=== PATIENT | male | born 1965 | race American Indian/Alaskan Native ===

== ENCOUNTER 2018-02-26 21:20 | Emergency (ER) | payer OTHER ==
[2018-02-26 21:31] VITALS: BP 141/89; PULSE 82; RESP 17; TEMP 98.5; O2SAT 99
--- NOTE | 2018-02-26 22:38 | ED PDOC ---
HPI: General Adult Time Seen by Provider: 02/26/18 21:33 Chief Complaint (Nursing): Back Pain Chief Complaint (Provider): fall History Per: Patient Additional Complaint(s): 52-year-old male presents with right knee pain, right elbow pain, lower back pain and headache status post fall off the back of a truck at approximately 5: 15 today. Patient states he tripped, lost his footing and fell backwards off a truck hitting the back of his head against the ground. He states he lost consciousness for about 10 minutes and then got up and was able to walk. He presents with headache, lower back pain, right elbow pain and right knee pain. No medication taken for pain relief prior to arrival. PMD: none Past Medical History Reviewed: Historical Data, Nursing Documentation, Vital Signs Vital Signs: Last Vital Signs Temp 98.5 F 02/26/18 21:28 Pulse 82 02/26/18 21:28 Resp 17 02/26/18 21:28 BP 141/89 02/26/18 21:28 Pulse Ox 99 02/26/18 22:37 - Medical History PMH: No Chronic Diseases - Family History Family History: States: No Known Family Hx - Living Arrangements Living Arrangements: With Family - Social History Current smoker - smoking cessation education provided: Yes Alcohol: None Drugs: Denies - Home Medications Home Medications: Ambulatory Orders Medication Instructions Recorded Cyclobenzaprine [Cyclobenzaprine 10 mg PO TID PRN #20 tab 02/26/18 HCl] Naproxen [Naprosyn] 500 mg PO BID #20 tab 02/26/18 - Allergies Allergies/Adverse Reactions: Allergies Allergy/AdvReac Type Severity Reaction Status Date / Time No Known Allergies Allergy Verified 02/26/18 21:31 Review of Systems ROS Statement: Except As Marked, All Systems Reviewed And Found Negative Musculoskeletal: Positive for: Other (back pain, right elbow pain, right knee pain s/p fall) Neurological: Positive for: Other (head injury with LOC) Physical Exam - Reviewed Nursing Documentation Reviewed: Yes Vital Signs Reviewed: Yes - Physical Exam Appears: Positive for: Well, Non-toxic, No Acute Distress Head Exam: Positive for: ATRAUMATIC, NORMAL INSPECTION Skin: Positive for: Normal Color. Negative for: Rash Eye Exam: Positive for: Normal appearance Neck: Positive for: Normal Cardiovascular/Chest: Positive for: Regular Rate, Rhythm Respiratory: Positive for: Normal Breath Sounds Gastrointestinal/Abdominal: Positive for: Soft. Negative for: Tenderness Back: Positive for: Vertebral Tenderness (Midline tenderness lumbar spine with no step-off, negative bilateral straight leg raise). Negative for: L CVA Tenderness, R CVA Tenderness Extremity: Positive for: Other (Full range of motion right elbow with pain, strong right handgrip, no bony deformity noted, mild swelling to right patellar region with full range of motion right knee) Neurologic/Psych: Positive for: Alert, Oriented - ECG O2 Sat by Pulse Oximetry: 99 Pulse Ox Interpretation: Normal - Other Rad CT head X-Ray: Read By Radiologist X-ray right knee X-Ray: Interpreted by Me, Viewed By Me X-Ray Interpretation: no fx, no dis X-ray right elbow X-Ray: Interpreted by Me, Viewed By Me X-ray LS Spine X-Ray: Interpreted by Me, Viewed By Me X-Ray Interpretation: no fx, no dis Medical Decision Making Medical Decision Makin52 year old male with low back pain, right elbow pain, right knee pain and headache status post fall. Plan: PO tylenol CT head X-ray right knee X-ray right elbow Procedure note: Jeyson wrap and sling applied to right arm, knee immobilizer applied to right knee, neurovascular intact status post placement respectively. Patient aware of all diagnostic testing results, all questions answered. Prescriptions given for Naprosyn and Flexeril, patient was referred to orthopedic on-call. Disposition - Clinical Impression Clinical Impression: Head injury, Elbow sprain, Knee contusion, Lumbar strain - Patient ED Disposition Is Patient to be Admitted: Transfer of Care Counseled Patient/Family Regarding: Studies Performed, Diagnosis, Need For Followup, Rx Given - Disposition Referrals: Mitchell Boss MD [Staff Provider] - Disposition: Transfer of Care Disposition Time: 00:03 Condition: FAIR Additional Instructions: Ice, rest and elevate affected areas. Take prescription meds as directed as needed for pain. Follow-up with orthopedist in 2-3 days Prescriptions: Cyclobenzaprine [Cyclobenzaprine HCl] 10 mg PO TID PRN #20 tab PRN Reason: Muscle Spasm Naproxen [Naprosyn] 500 mg PO BID #20 tab Instructions: Contusion (DC), Closed Head Injury, Elbow Sprain (DC), Knee Sprain (DC) Forms: [employer] (Austrian) Patient Signed Over To: Teresa Stone Handoff Comments: Pending CT head report and final disposition
--- NOTE | 2018-02-27 00:03 | ED PDOC ---
- ECG O2 Sat by Pulse Oximetry: 99 (RA) Pulse Ox Interpretation: Normal Medical Decision Making Medical Decision Making: Case endorsed to Leeroy Stone PA-C at [address] results, re-evaluation, and further disposition. Pertinent details reviewed. Vitals stable. 1210 CT reviewed, radiology report follows FINDINGS: Brain: Mild atrophy. No intracranial hemorrhage. No mass. No edema. Ventricles: No hydrocephalus. Bones/joints: No acute fracture. Sinuses: Scattered minimal mucosal thickening. Mastoid air cells: No significant mastoid effusion. Orbits: Unremarkable as visualized. Soft tissues: Minimal scalp swelling. IMPRESSION: No intracranial hemorrhage. Thank you for allowing us to participate in the care of your patient. Dictated and Authenticated by: Antony Currie MD 02/27/2018 12:08 AM Eastern Time ([place] & [place]) On re-evaluation, patient reports improvement of symptoms. On exam, patient remains AAOx3, in no acute distress. Lungs clear to auscultation, cardiac RRR, abdomen soft, non-tender, repeat neuro exam shows no focal findings. Vitals stable. Lab/Diagnostic results d/w the patient in great detail. Diagnosis of closed head injury, acute knee, elbow, and back pain s/p fall d/w the patient. Based on history, exam and diagnostic results, plan will be for outpatient follow up with ortho/PMD. Patient instructed to follow-up with pmd / referral provided / the clinic in 1- 2 days without fail. Advised to take medication as prescribed. Return to the emergency room at any time for any new or worsening symptoms. Patient states he fully agrees with and understands discharge instructions. States that he agrees with the plan and disposition. Verbalized and repeated discharge instructions and plan. I have given the patient opportunity to ask any additional questions. Disposition Counseled Patient/Family Regarding: Studies Performed, Diagnosis, Need For Followup, Rx Given - Clinical Impression Clinical Impression: Head injury, Elbow sprain, Knee contusion, Lumbar strain - POA Present On Arrival: Falls Or Trauma - Disposition Referrals: Mitchell Boss MD [Staff Provider] - Disposition: Routine/Home Disposition Time: 00:11 Condition: FAIR Additional Instructions: Ice, rest and elevate affected areas. Take prescription meds as directed as needed for pain. Follow-up with orthopedist in 2-3 days. The emergency medical care you received today was directed at your acute symptoms. If you were prescribed any medication, please fill it and take as directed. It may take several days for your symptoms to resolve. Return to the Emergency Department if your symptoms worsen, do not improve, or if you have any other problems. Please contact your doctor in 2 days for re-evaluation and follow up / or call one of the physicians/clinics you have been referred to that are listed on the Patient Visit Information form that is included in your discharge packet. Bring any paperwork you were given at discharge with you along with any medications you are taking to your follow up visit. Our treatment cannot replace ongoing medical care by a primary care provider (PCP) outside of the emergency department. Prescriptions: Cyclobenzaprine [Cyclobenzaprine HCl] 10 mg PO TID PRN #20 tab PRN Reason: Muscle Spasm Naproxen [Naprosyn] 500 mg PO BID #20 tab Instructions: Closed Head Injury, Contusion (DC), Knee Sprain (DC), Elbow Sprain (DC) Forms: [employer] (Wolof) Print Language: IRAQI
--- NOTE | 2018-02-27 10:09 | CT ---
Date of service: 02/26/2018 PROCEDURE: CT HEAD WITHOUT CONTRAST. HISTORY: trauma COMPARISON: None available. TECHNIQUE: Axial computed tomography images were obtained through the head/brain without intravenous contrast. Radiation dose: Total exam DLP = 859.90 mGy-cm. This CT exam was performed using one or more of the following dose reduction techniques: Automated exposure control, adjustment of the mA and/or kV according to patient size, and/or use of iterative reconstruction technique. FINDINGS: HEMORRHAGE: No intracranial hemorrhage. BRAIN: De Paz-white matter differentiation is preserved. There is no mass, mass effect or abnormal extra-axial fluid collection. There is no territorial infarction. The midline sagittal structures are normal. VENTRICLES: The ventricles are normal in size, shape and configuration. CALVARIUM: There is no calvarial fracture or extracranial soft tissue swelling. PARANASAL SINUSES: Predominantly clear. MASTOID AIR CELLS: Predominantly clear. OTHER FINDINGS: None. IMPRESSION: No acute intracranial abnormality. A preliminary report was provided by [employer] [facility].
--- NOTE | 2018-02-27 10:31 | RAD ---
Date of service: 02/26/2018 PROCEDURE: Radiographs of the right elbow. HISTORY: trauma COMPARISON: No prior. FINDINGS: BONES: No acute fracture or destructive bony lesion identified. JOINTS: Extensive degenerative changes are appreciate the right elbow joint. Cortical sclerosis and extensive osteophyte development are appreciated humeral radial and humeral ulnar joints. No subluxation or dislocation. SOFT TISSUES: Normal. JOINT EFFUSION: None. OTHER FINDINGS: None. IMPRESSION: No acute fracture or dislocation identified. 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
--- NOTE | 2018-02-27 10:33 | RAD ---
Date of service: 02/26/2018 PROCEDURE: Right Knee Radiographs. HISTORY: trauma COMPARISON: None. FINDINGS: BONES: No acute fracture dislocation. Deformity of the proximal tibia appreciated suggesting prior healed fracture. JOINTS: No subluxation or dislocation. Mild osteophyte development is seen at the patellofemoral joint. Joint space narrowing the medial femorotibial and patellofemoral compartments indicates degenerative joint disease as well. JOINT EFFUSION: Trace suprapatellar bursa effusion suggested. OTHER FINDINGS: None. IMPRESSION: No acute fracture or dislocation although chronic healed fracture of the proximal tibia suggested. Moderate degenerative joint disease, bicompartmental.
--- NOTE | 2018-02-27 10:37 | RAD ---
Date of service: 02/26/2018 PROCEDURE: Radiographs of the Lumbar Spine. HISTORY: trauma COMPARISON: No prior. FINDINGS: BONES: Normal alignment. No listhesis. No fracture. DISC SPACES: Gross spondylosis appreciate the L3-4 level anteriorly and appears mild at L2-3 and L4-5. Disc height loss is mild at L4-5 with remaining intervertebral disc heights normal as well as vertebral body heights throughout. OTHER FINDINGS: None. IMPRESSION: No fracture or spondylolisthesis appreciated grossly. Multilevel lumbar spondylosis affects the mid to upper levels.
== END 2018-02-27 00:17 | disposition home or self-care (01) ==
LOC: H.ER 21:20
DX: S09.90XA Unspecified injury of head, initial encounter (principal); S53.401A Unspecified sprain of right elbow, initial encounter; S39.012A Strain of muscle, fascia and tendon of lower back, initial encounter; W01.0XXA Fall on same level from slipping, tripping and stumbling without subsequent striking against object, initial encounter; Y92.89 Other specified places as the place of occurrence of the external cause